=== PATIENT | male | born 1955 | race Caucasian/White ===

== ENCOUNTER 2016-10-11 19:15 | Inpatient (IN) ==
--- NOTE | 2016-10-11 19:58 | Emergency Department Note ---
Disposition Clinical Impression: Atrial fibrillation Qualifiers: Atrial fibrillation type: unspecified Qualified Code(s): I48.91 - Unspecified atrial fibrillation Disposition: Admitted As Inpatient Condition: Good [facility]Primary Care Provider[facility] - Forms: ED Satisfaction Letter Arrhythmia/Palpitations HPI - General Chief Complaint: ED Arrhythmia/Palpitations Stated Complaint: new onset afib Time Seen by Provider: 10/11/16 19:21 Source: patient, EMS Mode of arrival: EMS Limitations: no limitations Nursing Notes Reviewed: Yes Vital Signs Reviewed: Yes - History of Present Illness HPI Narrative: 61-year-old male history of esophageal cancer, hypertension, hyperlipidemia who presents to the ER via EMS from the [facility] due to new onset atrial fibrillation. Patient reports that this morning when he was up in his house he felt dizzy and lightheaded. He states that this happened a few times today which prompted him to go to the [facility] for evaluation. He denies any history of cardiac disease. He denies any chest pain, shortness of breath, palpitations today. They did an EKG at the [facility] finding atrial fibrillation and transferred him here for evaluation. Currently just reports feeling dizziness intermittently. No other complaints. Pt Subjective Complaint: atrial fibrillation Onset (ago): hour(s) Duration: intermittent Severity: moderate Context: occurred during rest Associated symptoms: Reports: near-syncope. Denies: chest pain, shortness of breath, syncope - Related Data Home Medications Medication Instructions Recorded Confirmed ALPRAZolam [Xanax 0.5 MG Tablet] 0.5 mg PO BID PRN 10/11/16 10/11/16 Atenolol [Tenormin] 12.5 mg PO DAILY 10/11/16 10/11/16 Furosemide [Lasix] 40 mg PO DAILY PRN 10/11/16 10/11/16 Heat & Moisture Exchanger 1 each .ROUTE AD 10/11/16 10/11/16 Thyroid,Pork [[place] Thyroid] 120 mg PO QAM 10/11/16 10/11/16 Trach Baseplate Adhesive 1 each .ROUTE AD 10/11/16 10/11/16 glipiZIDE [Glucotrol] 2.5 mg PO BIDWM 10/11/16 10/11/16 Allergies Allergy/AdvReac Type Severity Reaction Status Date / Time bacitracin Allergy Rash Verified 10/11/16 19:34 [From Neosporin ([id number])] lisinopril Allergy See Verified 10/11/16 19:34 Comments Neomycin Allergy Rash Verified 10/11/16 19:34 [From Neosporin ([id number])] polymyxin B Allergy Rash Verified 10/11/16 19:34 [From Neosporin ([id number])] simvastatin [From Zocor] Allergy See Verified 10/11/16 19:34 Comments All systems ED: reviewed and negative except as stated. Constitutional: Denies: fever Cardiovascular: Denies: chest pain, palpitations Respiratory: Denies: cough, dyspnea Gastrointestinal: Denies: abdominal pain, nausea, vomiting Neurological: Reports: other (Dizziness) Past Medical History - Past Medical History Attestation: Yes The following information was validated with the patient. Source: patient Medical history: Reports: diabetes, hyperlipidemia, hypertension, thyroid disease Psychiatric history: Reports: anxiety, panic disorder - Social History Smoking Status: Former smoker Smokeless Tobacco Status: No Alcohol use: Reports: none Drug use: Reports: none Physical Exam - General Limitations: no limitations General appearance: alert, in no apparent distress - Head Head exam: atraumatic, normocephalic, normal inspection - Eye Eye exam: Present: normal appearance, EOMI - ENT ENT exam: normal exam - Neck Neck exam: Present: normal inspection - Chest Chest inspection: Present: normal inspection, symmetric chest wall rise - Respiratory Respiratory exam: Present: normal lung sounds bilaterally - Cardiovascular Cardiovascular exam: Present: regular rate, irregular rhythm, normal heart sounds - Abdominal Exam Abdominal exam: Present: soft, Non-Tender. Absent: tenderness - Extremities Exam Extremities exam: Present: normal inspection, full ROM - Expanded Upper Extremity Exam Shoulder exam: Present: normal inspection, full ROM Arm exam: Present: normal inspection, full ROM Elbow exam: Present: normal inspection, full ROM Forearm/Wrist exam: Present: normal inspection, full ROM Hand exam: Present: normal inspection, full ROM - Expanded Lower Extremity Exam Hip/Pelvis exam: Present: normal inspection, full ROM Upper leg exam: Present: normal inspection, full ROM Knee exam: Present: normal inspection, full ROM Lower leg exam: Present: normal inspection, full ROM Ankle exam: Present: normal inspection, full ROM Foot/toe exam: Present: normal inspection, full ROM - Neurological Exam Neurological exam: Present: alert - Psychiatric Psychiatric exam: Present: normal affect, normal mood - Skin Skin exam: Present: warm, dry, intact, normal color Course Course Narrative: Patient seen and examined. Vital signs reviewed. We will obtain an EKG, chest x-ray as well as labs including troponin and TSH. Patient will require admission for observation for new onset atrial fibrillation. His rate is currently anywhere from 80-110 with a stable blood pressure. We will continue to monitor. - Reevaluation(s) Reevaluation #1: Discussed results of imaging and lab work with the patient. Vital Signs Temperature 98.2 F 10/11/16 19:21 Pulse Rate 107 10/11/16 19:21 Respiratory Rate 18 10/11/16 19:21 Blood Pressure 125/94 10/11/16 19:21 O2 Sat by Pulse Oximetry 98 10/11/16 19:21 Temperature 98.2 F 10/11/16 19:21 Pulse Rate 87 10/11/16 21:12 Respiratory Rate 18 10/11/16 21:12 Blood Pressure 120/85 10/11/16 21:12 O2 Sat by Pulse Oximetry 95 10/11/16 21:12 Oxygen Delivery Oxygen Delivery Room Air Arrhythmia/Palpitations - [facility] Narrative Medical decision making narrative: 61-year-old male presents to the ER after dizziness this morning found to have atrial fibrillation at the outside facility. His EKG redemonstrates atrial fibrillation here. His rate has been from 80-110 without intervention. Chest x -ray unremarkable. Troponin is negative. Patient is hemodynamically stable and will be admitted to the hospitalist service for further management. - Lab Data Lab results reviewed: Yes I reviewed the patient's lab results. Result diagrams: 10/11/16 20:06 10/11/16 20:06 Lab Results 10/11/16 10/11/16 10/11/16 Range/Units 20:06 20:06 20:06 WBC 9.0 (4.3-11.1) K/mcL RBC 5.59 H (4.19-5.50) M/mcL Hgb 16.7 (12.9-16.9) g/dL Hct 50.0 (37.5-50.1) % MCV 89.4 (83.0-100.0) fL MCH 29.9 (28.0-33.3) pg MCHC 33.4 (31.6-35.5) g/dL RDW 12.3 (11.5-14.5) % Plt Count 258 (140-400) K/mcL MPV 10.7 (9.4-12.4) fL Immature Gran % 0.2 (0-4) % Seg Neutrophils % 75.6 % Lymphocytes % 16.9 % Monocytes % 6.8 % Eosinophils % 0.2 % Basophils % 0.3 % Neutrophils # 6.8 (1.6-8.9) K/mcL Lymphocytes # 1.5 (0.6-4.6) K/mcL Monocytes # 0.6 (0.0-1.3) K/mcL Eosinophils # 0.0 (0.0-0.6) K/mcL Basophils # 0.0 (0.0-0.2) K/mcL Sodium 138 (136-145) mEq/L Potassium 4.1 (3.5-4.5) mEq/L Chloride 106 (98-109) mEq/L Carbon Dioxide 23 (19-29) mEq/L BUN 11 (8-26) mg/dL Creatinine 1.14 (0.72-1.25) mg/dL Est GFR ( Amer) > 60 (> 60) Est GFR (Non-Af Amer) > 60 (> 60) BUN/Creatinine Ratio 10 (6-26) Glucose 155 H (70-99) mg/dL Calculated Osmolality 289 (280-300) Calcium 9.2 (8.6-10.8) mg/dL Troponin I 0.00 (0-0.03) ng/mL TSH 0.244 L (0.350-4.840) mcIU/mL - Radiology Data Radiology results reviewed: Yes I reviewed the patient's radiology results. Chest X-Ray 10/11/16 19:28 IMPRESSION: No evidence of acute cardiopulmonary disease. D/ / Jimbo Silva MD / Jimbo Silva MD Interpreting Provider: Jimbo Silva MD - EKG Data EKG attestation: Yes I reviewed and interpreted this EKG. EKG results narrative: EKG demonstrates atrial fibrillation with a rate of 91 bpm. Normal axis. QRS duration [address] elevations or depressions. No acute ischemic findings. Bibaina - Bibiana Situation: Demographics, MOA Background: Presenting Complaint, Relevant PMH, Meds, & Allergies Assessment: Vital Signs, Course and respsone to treatment, Exam Concerns, Patient/Family Expectation, Pertinant Lab Results, Outstanding Labs Recommendation: Barrier(s) to disposition, Recommendation based on pending studies, treatments, or consults Bibiana Report Given to: Dr. Madhuri Mccarty Repor Time: 21:06 Attestation Statement - Attestation Attestation: I, Gustavo Huntley MD, personally evaluated this patient and discussed their management with the resident physician. I reviewed the resident's note and agree with the documented findings, medical decision making, and plan of care. 61-year-old male transferred from the [facility] urgent care for new onset atrial fibrillation. Patient denies any prior cardiac history. He presented because of complaints of feeling lightheaded intermittently since he got up this morning. No syncope. He states that he is really not dizzy just more lightheaded and feels like he is going to black out. The symptoms just seem to come and go. No headache. No chest pain or shortness of breath. He initially denies any palpitations however on further questioning admits that he did notice when he would lie down that it felt like maybe his heart was racing a little. He was seen at the [facility] and had an EKG which showed atrial fibrillation. He was transferred here for further evaluation and management. On examination patient is a well-developed morbidly obese male in no acute distress. He is alert and oriented 3. There is no cyanosis or diaphoresis. Chest is nontender to palpation. Breath sounds are clear and equal bilaterally. Heart irregularly irregular with a normal rate at time of my examination. Abdomen soft and nontender with normal bowel sounds. Trace pedal edema. Labs reviewed. Troponin normal. EKG shows atrial fibrillation. Chest x-ray negative. The hospitalist, Dr. Dhaliwal, was consulted and accepted admission of the patient.
[2016-10-11 20:16] LABS: Basophils % 0.3 %; Eosinophils % 0.2 %; Hemoglobin 16.7 g/dL (12.9-16.9); Immature Granulocytes % 0.2 % (0-4); Lymphocytes # 1.5 K/mcL (0.6-4.6); Lymphocytes % 16.9 %; Mean Corpuscular HGB Conc 33.4 g/dL (31.6-35.5); Mean Corpuscular Hemoglobin 29.9 pg (28.0-33.3); Mean Corpuscular Volume 89.4 fL (83.0-100.0); Mean Platelet Volume 10.7 fL (9.4-12.4); Monocytes # 0.6 K/mcL (0.0-1.3); Monocytes % 6.8 %; Neutrophils # 6.8 K/mcL (1.6-8.9); Platelet Count 258 K/mcL (140-400); Red Blood Count 5.59 M/mcL (4.19-5.50); Red Cell Distribution Width 12.3 % (11.5-14.5); Segmented Neutrophils % 75.6 %
[2016-10-11 20:25] LABS: BUN/Creatinine Ratio 10 (6-26); Blood Urea Nitrogen 11 mg/dL (8-26); Calcium 9.2 mg/dL (8.6-10.8); Carbon Dioxide 23 mEq/L (19-29); Chloride 106 mEq/L (98-109); Glucose 155 mg/dL (70-99); Osmolality,Calculated 289 (280-300); Potassium 4.1 mEq/L (3.5-4.5); Sodium 138 mEq/L (136-145); eGFR For African Americans > 60 (> 60); eGFR For Non-African Americans > 60 (> 60)
[2016-10-11 20:46] LABS: Thyroid Stimulating Hormone 0.244 mcIU/mL (0.350-4.840)
[2016-10-11] MEDS ORDERED: Naloxone 0.4 MG/ML INJ IVP PRN (21:28)
[2016-10-11] MEDS ORDERED: Acetaminophen 325 MG TABLET PO PRN (21:28)
--- NOTE | 2016-10-11 21:32 | Event Note ---
Date of Encounter: 10/11/16 Time of Encounter: 21:30 1. New-onset A. fib Increase atenolol up to 25 mg daily, start heparin drip, order echocardiogram, telemetry ECHO Consult cardiology 2. Diabetes type 2 not insulin-dependent, use insulin sliding scale 3. Hypertension, stable 4. History of esophageal cancer status post tracheostomy 5. History of DVT many years ago not on anticoagulation Admit to inpatient, expected to stay more than 2 midnights. Full code. Time spent on this admission 40 minutes. High risk due to comorbidities Omeprazole for GI prophylaxis and heparin drip for DVT prophylaxis. H&P to be written by TANK Crow
[2016-10-11] MEDS ORDERED: ALPRAZolam 0.5 MG TABLET PO PRN (21:33)
[2016-10-11] MEDS ORDERED: Furosemide 40 MG TABLET PO PRN (21:33)
[2016-10-11] MEDS ORDERED: *HR* Dextrose 50 % in Water (Syg) 50 ML SYRINGE IVP PRN (21:34)
[2016-10-11] MEDS ORDERED: D5% in Water 1,000 ML IVC PRN (21:34)
[2016-10-11] MEDS ORDERED: Dextrose Gel 15 GM PO PRN ×2 (21:34)
--- NOTE | 2016-10-11 21:37 | Internal Med History&Physical ---
<Karla Crow Jerome - Last Filed: 10/11/16 21:35> Date of Encounter: 10/11/16 Time of Encounter: 21:35 Assessment and Plan (1) Atrial fibrillation Current visit: Yes Status: Acute New onset. EKG with A. fib, rate controlled. Symptomatic with lightheadedness and dizziness prior to admission. Heparin drip started in the ED, echo, TSH, BNP, and troponin pending area check echo. Cardiology consult. Home beta denys increased to maintain rate control. Qualifiers: Atrial fibrillation type: paroxysmal Qualified Code(s): I48.0 - Paroxysmal atrial fibrillation (2) ALIA (acute kidney injury) Current visit: Yes Status: Acute Creat 1.4, baseline unknown. Patient denies history of CTD. Gentle IV fluids, monitor repeat CMP in a.m. (3) Essential hypertension Current visit: Yes Status: Acute Per history. BP mildly elevated in ED. Increase home BB. Monitor blood pressure titrate when necessary (4) Diabetes mellitus Current visit: Yes Status: Acute Per history. Control unknown. Holding home oral hypoglycemics. Add sliding scale insulin, monitor blood sugars and titrate when necessary. 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 Stable, no acute needs can follow up outpatient. (6) DVT prophylaxis Current visit: Yes Status: Acute Heparin drip Internal Medicine - H&P: HPI Chief complaint: a-fib Admitted From: Home Plans for Post Hospital Care: Home History of present illness: Mr. Stapleton is a 61 year old male with past medical history hypertension, diabetes , laryngeal cancer who presented to [facility] on 10/11/2016 after being found to be new onset A. fib at the [facility]. He was admitted for further workup and treatment, heparin drip and cardiac evaluation. Information obtained from chart review and patient report. Patient says he woke up today felt lightheaded and dizzy. He went to the [facility] was found to be in atrial fibrillation. No previous history. All my exam he says he feels better tired but back at baseline. No chest pain no lightheadedness no dizziness no palpitations. Past Med Surg Social Fam HX - Past Medical History Medical history: diabetes, hyperlipidemia, hypertension, thyroid disease Psychiatric history: anxiety, panic disorder - Past Surgical History Surgical History: knee replacement - Social History Smoking Status: Former smoker Smokeless Tobacco Status: No Alcohol use: none Drug use: none - Additional Family History Additional family history: Reviewed and noncontributory Internal Medicine - H&P: Meds ALPRAZolam [Xanax 0.5 MG Tablet] 0.5 mg PO BID PRN 10/11/16 [History] Atenolol [Tenormin] 12.5 mg PO DAILY 10/11/16 [History] Furosemide [Lasix] 40 mg PO DAILY PRN 10/11/16 [History] Heat & Moisture Exchanger 1 each .ROUTE AD 10/11/16 [History] Thyroid,Pork [[place] Thyroid] 120 mg PO QAM 10/11/16 [History] Trach Baseplate Adhesive 1 each .ROUTE AD 10/11/16 [History] glipiZIDE [Glucotrol] 2.5 mg PO BIDWM 10/11/16 [History] Allergies bacitracin [From Neosporin ([id number])] Allergy (Verified 10/11/16 19:34) Rash lisinopril Allergy (Verified 10/11/16 19:34) See Comments Neomycin [From Neosporin ([id number])] Allergy (Verified 10/11/16 19:34) Rash polymyxin B [From Neosporin ([id number])] Allergy (Verified 10/11/16 19:34) Rash simvastatin [From Zocor] Allergy (Verified 10/11/16 19:34) See Comments All Systems PM: A 10-system review of systems was performed and is negative for pertinent findings except as documented above in the HPI. - Constitutional Constitutional: no chills, no fever(s), no night sweats - EENT Eyes: no change in vision, no discharge, no pain, no photophobia Ears: no ear discharge, no ear pain, no tinnitus Nose, mouth and throat: no dysphagia, no nasal discharge, no neck pain, no sore throat - Cardiovascular Cardiovascular ROS IM: no chest pain, no diaphoresis, no dyspnea, no lightheadedness, no palpitations, no syncope - Respiratory Respiratory: no cough, no dyspnea, no wheezing, no excessive phlegm production - Gastrointestinal Gastrointestinal: no abdominal pain, no diarrhea, no hematemesis, no hematochezia, no melena, no nausea, no vomiting - Musculoskeletal Musculoskeletal ROS IM: no numbness, no tingling - Integumentary Integumentary IM: no rash, no unusual bruising - Neurological Neurological ROS: no confusion, no convulsions, no focal weakness, no numbness, no tingling, no tremor(s) - Hematologic/Lymphatic Hematologic/Lymphatic: no easy bruising - Constitutional Vitals: Temp Pulse Resp BP Pulse Ox 98.2 F 87 18 120/85 95 10/11/16 19:21 10/11/16 21:12 10/11/16 21:12 10/11/16 21:12 10/11/16 21:12 General appearance: Present: A&O X 3, morbidly obese - Head Head exam: Present: atraumatic, normocephalic - Eye Eye exam: Present: PERRL, conjuntiva pink, sclera anicteric Pupils: Present: PERRL - Neck Neck exam general surgery: Present: supple, trachea midline. Absent: lymphadenopathy Additional comments: Chronic trach - Respiratory Respiratory exam: Present: CTAB. Absent: accessory muscle use, rales, rhonchi, wheezes - Cardiovascular Cardiovascular exam: Present: irregular rhythm, +S1, +S2. Absent: diastolic murmur, gallop, rubs, systolic murmur Additional comments: Telemetry A. fib - GI/Abdominal GI/Abdominal exam: Present: normal bowel sounds, soft, no peritoneal signs. Absent: distended, tenderness - Extremities Exam Extremities exam: Present: warm, radial pulses palpable and symetrical. Absent : calf tenderness, cyanotic, pedal edema - Neurological Exam Neurological exam: Present: CN II-XII intact, oriented X3, no focal deficits. Absent: pronater drift, facial droop, speech deficit - Skin Skin exam: Present: dry, intact Internal Med - H&P Results - Labs CBC & Chem 7: 10/11/16 20:06 10/11/16 20:06 Labs: Short CBC 10/11/16 Range/Units 20:06 WBC 9.0 (4.3-11.1) K/mcL Hgb 16.7 (12.9-16.9) g/dL Hct 50.0 (37.5-50.1) % Plt Count 258 (140-400) K/mcL Neutrophils # 6.8 (1.6-8.9) K/mcL BMP 10/11/16 20:06 Sodium 138 Potassium 4.1 Chloride 106 Carbon Dioxide 23 BUN 11 Creatinine 1.14 Glucose 155 H Calcium 9.2 Cardiac Enzymes 10/11/16 Range/Units 20:06 Troponin I 0.00 (0-0.03) ng/mL - Impressions ITS Impressions Chest X-Ray 10/11/16 19:28 IMPRESSION: No evidence of acute cardiopulmonary disease. D/ / Jimbo Silva MD / Jimbo Silav MD Interpreting Provider: Jimbo Silva MD <Rian Rodriguez H - Last Filed: 10/12/16 02:41> Date of Encounter: 10/12/16 Internal Medicine - H&P: HPI History of present illness: Mr. Stapleton is a 61 year old male Past Med Surg Social Fam HX - Family History Mother Adopted: No Family Member Ethnicity: Non- Living Status: Age at : 52 Cause of : surgery Hx Family Cardiac Disorders: No Hx Family Respiratory Disorders: No Hx Family Cancer: No Hx Family GI Disorders: No Hx Family Genitourinary Disorders: No Hx Family Endocrine Disorder: No All Systems PM: A 10-system review of systems was performed and is negative for pertinent findings except as documented above in the HPI. - Constitutional Vitals: Temp Pulse Resp BP Pulse Ox 98.3 F 95 15 132/86 94 10/11/16 22:21 10/11/16 22:21 10/11/16 22:21 10/11/16 22:21 10/11/16 22:21 Internal Med - H&P Results - Labs CBC & Chem 7: 10/11/16 20:06 10/11/16 20:06 - Attending Attestation 1. New-onset A. fib Increase atenolol up to 25 mg daily, start heparin drip, order echocardiogram, telemetry ECHO Consult cardiology 2. Diabetes type 2 not insulin-dependent, use insulin sliding scale 3. Hypertension, stable 4. History of esophageal cancer status post tracheostomy 5. History of DVT many years ago not on anticoagulation Admit to inpatient, expected to stay more than 2 midnights. Full code. Time spent on this admission 40 minutes. High risk due to comorbidities Omeprazole for GI prophylaxis and heparin drip for DVT prophylaxis. I examined this patient and my medical decision-making was reviewed with the [employer]/PA/Advanced Practice Nurse/Resident Physician. I agree with the documented findings, disposition and treatment plan as described except to the extent set forth below.
[2016-10-11] MEDS ORDERED: Heparin 25,000 UNIT/500 ML D5W 25,000 UNIT/500 ML MLS IVC SCH (21:45)
[2016-10-11] MEDS ORDERED: 0.9 % Sodium Chloride 1,000 ML IVC SCH (21:45)
[2016-10-11 22:16] LABS: Hemoglobin A1C 6.4 %
[2016-10-12 03:27] LABS: Basophils # 0.1 K/mcL (0.0-0.2); Basophils % 0.6 %; Eosinophils # 0.1 K/mcL (0.0-0.6); Eosinophils % 1.3 %; Hematocrit 50.3 % (37.5-50.1); Immature Granulocytes % 0.3 % (0-4); Lymphocytes # 3.2 K/mcL (0.6-4.6); Lymphocytes % 32.6 %; Mean Corpuscular HGB Conc 33.8 g/dL (31.6-35.5); Mean Corpuscular Hemoglobin 30.4 pg (28.0-33.3); Mean Platelet Volume 10.9 fL (9.4-12.4); Monocytes # 0.9 K/mcL (0.0-1.3); Monocytes % 9.5 %; Neutrophils # 5.5 K/mcL (1.6-8.9); Platelet Count 267 K/mcL (140-400); Red Blood Count 5.59 M/mcL (4.19-5.50); Red Cell Distribution Width 12.5 % (11.5-14.5); Segmented Neutrophils % 55.7 %
[2016-10-12 03:45] LABS: Alanine Aminotransferase 25 Units/L (0-55); Albumin 3.7 g/dL (3.5-5.0); Albumin/Globulin Ratio 1.1 (1.1-2.2); Alkaline Phosphatase 77 Units/L (38-126); Aspartate Amino Transferase 20 Units/L (5-34); BUN/Creatinine Ratio 10 (6-26); Bilirubin,Total 0.8 mg/dL (0.2-1.2); Blood Urea Nitrogen 12 mg/dL (8-26); Calcium 9.3 mg/dL (8.6-10.8); Carbon Dioxide 25 mEq/L (19-29); Chloride 106 mEq/L (98-109); Chol/HDL Ratio 6.1 (0-4.9); Cholesterol 250 mg/dL (< 200); Globulin 3.5 g/dL (2.4-3.5); Glucose 119 mg/dL (70-99); HDL Cholesterol 41 mg/dL (40-59); LDL Cholesterol,Calculated 165 mg/dL (0-99); Osmolality,Calculated 291 (280-300); Sodium 140 mEq/L (136-145); Total Protein 7.2 g/dL (6.0-8.3); Triglycerides 218 mg/dL (< 150); eGFR For African Americans > 60 (> 60); eGFR For Non-African Americans > 60 (> 60)
[2016-10-12] MEDS ORDERED: *HR* Heparin 5,000 UNIT/ML VIAL IVP PRN ×2 (05:49)
[2016-10-12] MEDS ORDERED: Perflutren Lipid Microsphere 1.3 ML in 0.9 % Sodium Chloride 8.7 ML IVP ONE (08:07)
[2016-10-12] MEDS: Insulin LISPRO 300 UNITS/3 ML VIAL SQ SCH ×3 (08:29→12:15)
[2016-10-12 08:30] LABS: Triiodothyronine (T3) Free 2.29 pg/mL (1.71-3.71)
[2016-10-12] MEDS ORDERED: Thyroid (Amour) 30 MG TABLET PO SCH (09:00)
[2016-10-12] MEDS ORDERED: Sennosides/Docusate Sodium TABLET PO SCH (11:00)
[2016-10-12 11:48] VITALS: BP 114/78
--- NOTE | 2016-10-12 12:25 | Cardiology Consult Note ---
Date of Encounter: 10/12/16 Time of Encounter: 12:00 Assessment and Plan (1) Atrial fibrillation Current Visit: Yes Status: Acute Newly diagnosed atrial fibrillation; patient reports similar episode 1 month ago. Rate controlled with increased dose of oral betablocker. Avg HR=87 Electrolytes normal. TSH low, at 0.244--will defer further mgmt to primary service. Recommend rate control strategy and anticoagulation for 1 month; follow-up in the outpatient setting to discuss rhythm control. Echocardiogram pending. CHA2Ds Vasc= 2 (HTN, DMII); recommend long-term anticoagulation. Discussed NOAC vs. Coumadin, he prefers NOAC. Discussed with Dr. Huizar, will start Eliquis 5 mg BID. Social work consulted for cost assistance. No further recommendations from Cardiology standpoint, will sign-off and coordinate appt in the outpatient setting. Qualifiers: Atrial fibrillation type: persistent Qualified Code(s): I48.1 - Persistent atrial fibrillation Discussion w patient/family: The assessment and plan as outlined above was discussed with the patient and/or family members who expressed understanding and agreement. All questions were answered. Thank you for involving us in the care of your patient. Please call with any questions. The patient will be discussed and reviewed with Dr. Huizar; changes to be made accordingly. History of Present Illness Consult date: 10/12/16 Requesting physician: Karla Crow Consult reason: afib Chief complaint: Dizziness History of present illness: Mr. Stapleton is a 61 year old male with PMH significant for esophageal CA s/p tracheostomy (remission x16 years), HTN, hypothyroidism, DMII, panic attacks, and HLD who presented from the [facility] due to suspected new onset atrial fibrillation. He reports he woke up yesterday morning feeling off balance, he then went back to bed to lay down which improved symptoms. He got up again and symptoms returned and went to the CT. Reports similar episode close to a month ago. [facility], rate low 100's. He denies any prior cardiac history including arrhythmia or CAD. Past Med Surg Social Fam HX - Past Medical History Attestation: Yes The following information was validated with the patient. Source: patient Medical history: diabetes, hyperlipidemia, hypertension, thyroid disease Psychiatric history: anxiety, panic disorder - Past Surgical History Surgical History: cancer surgery, knee replacement - Social History Smoking Status: Former smoker Smokeless Tobacco Status: No Alcohol use: rarely Drug use: none - Family History Mother Adopted: No Family Member Ethnicity: Non- Living Status: Age at : 52 Cause of : surgery Hx Family Cardiac Disorders: No Hx Family Respiratory Disorders: No Hx Family Cancer: No Hx Family GI Disorders: No Hx Family Genitourinary Disorders: No Hx Family Endocrine Disorder: No Medications and Allergies ALPRAZolam [Xanax 0.5 MG Tablet] 0.5 mg PO BID PRN 10/11/16 [History] Atenolol [Tenormin] 12.5 mg PO DAILY 10/11/16 [History] Furosemide [Lasix] 40 mg PO DAILY PRN 10/11/16 [History] Heat & Moisture Exchanger 1 each .ROUTE AD 10/11/16 [History] Thyroid,Pork [[place] Thyroid] 120 mg PO QAM 10/11/16 [History] Trach Baseplate Adhesive 1 each .ROUTE AD 10/11/16 [History] glipiZIDE [Glucotrol] 2.5 mg PO BIDWM 10/11/16 [History] Allergies bacitracin [From Neosporin ([id number])] Allergy (Verified 10/11/16 19:34) Rash lisinopril Allergy (Verified 10/11/16 19:34) See Comments Neomycin [From Neosporin ([id number])] Allergy (Verified 10/11/16 19:34) Rash polymyxin B [From Neosporin ([id number])] Allergy (Verified 10/11/16 19:34) Rash simvastatin [From Zocor] Allergy (Verified 10/11/16 19:34) See Comments All Systems Review: A 10-system review of systems was performed and is negative for pertinent findings except as documented above in the HPI. - Cardiovascular Cardiovascular: as per HPI Physical Examination Vital Signs, Last 4 Hours Temp Pulse Resp BP Pulse Ox 10/12/16 11:47 97.6 F 61 20 114/78 93 10/12/16 09:18 96 General: Conversant, Other HEENT: Atraumatic, Normocephaly Neck: Other (stoma) Cardiac: Other (irregularly irregular) Lungs: Normal Breath Sounds Neuro: Alert and responsive Abdomen: Soft Skin: No rashes noted on visualized skin Musculoskeletal: No Chest Wall Tenderness Extremities: No Edema, Normal Pulses Results 10/12/16 03:09 10/12/16 03:09 Lab Results 10/12/16 10/12/16 10/12/16 03:09 03:09 03:09 WBC 9.9 Hgb 17.0 H Hct 50.3 H Plt Count 267 APTT Sodium 140 Potassium 4.0 Chloride 106 Carbon Dioxide 25 BUN 12 Creatinine 1.20 Glucose 119 H Calcium 9.3 Total Bilirubin 0.8 AST 20 ALT 25 Alkaline Phosphatase 77 Troponin I 0.01 B-Natriuretic Peptide 10/12/16 10/12/16 10/12/16 03:09 05:48 09:20 WBC Hgb Hct Plt Count APTT 85.2 H Sodium Potassium Chloride Carbon Dioxide BUN Creatinine Glucose Calcium Total Bilirubin AST ALT Alkaline Phosphatase Troponin I 0.00 B-Natriuretic Peptide 245 H - Imaging and Cardiology Echo: pending Other Results: 12 hour tele: avg HR=87 afib. - EKG Interpretation EKG results cardiology: personally reviewed Consult Discharge Plan - Plan [facility]errals: [facility] [Primary Care Provider] -
[2016-10-12] MEDS ORDERED: APIXABAN 5 MG TABLET PO SCH (13:00)
--- NOTE | 2016-10-12 13:12 | Discharge Summary ---
Date of Encounter: 10/12/16 Time of Encounter: 11:00 - Discharge Diagnosis (1) Atrial fibrillation Priority: Primary Status: Acute Qualifiers: Atrial fibrillation type: persistent Qualified Code(s): I48.1 - Persistent atrial fibrillation (2) Essential hypertension Priority: Secondary Status: Acute (3) Diabetes mellitus Priority: Secondary Status: Acute Qualifiers: Diabetes mellitus type: type 2 Diabetes mellitus complication status: with unspecified complications Diabetes mellitus technician terminal and repeater insulin use: without technician terminal and repeater use Qualified Code(s): E11.8 - Type 2 diabetes mellitus with unspecified complications (4) Laryngeal cancer Priority: Secondary Status: Acute (5) ALIA (acute kidney injury) Priority: Secondary Status: Ruled-out - Discharge Medications Prescriptions: Apixaban [Eliquis] 5 mg PO Q12H #60 tablet Atenolol [Tenormin] 25 mg PO DAILY #30 tablet Home Medications: ALPRAZolam [Xanax 0.5 MG Tablet] 0.5 mg PO BID PRN 10/11/16 [History] Furosemide [Lasix] 40 mg PO DAILY PRN 10/11/16 [History] Heat & Moisture Exchanger 1 each .ROUTE AD 10/11/16 [History] Thyroid,Pork [[place] Thyroid] 120 mg PO QAM 10/11/16 [History] Trach Baseplate Adhesive 1 each .ROUTE AD 10/11/16 [History] glipiZIDE [Glucotrol] 2.5 mg PO BIDWM 10/11/16 [History] Apixaban [Eliquis] 5 mg PO Q12H #60 tablet 10/12/16 [Rx] Atenolol [Tenormin] 25 mg PO DAILY #30 tablet 10/12/16 [Rx] Allergies/Adverse Reactions: Allergies bacitracin [From Neosporin ([id number])] Allergy (Verified 10/11/16 19:34) Rash lisinopril Allergy (Verified 10/11/16 19:34) See Comments Neomycin [From Neosporin ([id number]-qxy-[id number])] Allergy (Verified 10/11/16 19:34) Rash polymyxin B [From Neosporin (vlk-owk-liglg)] Allergy (Verified 10/11/16 19:34) Rash simvastatin [From Zocor] Allergy (Verified 10/11/16 19:34) See Comments Date of admission: 10/12/16 00:30 [facility]: [facility] Consults: 10/12/16 12:25 Consult to Rn Post Partum [CONS] Routine Reason for Consult: discharge planning--started on Eliquis for AC. Discharging clinician: Armand Eller Anticipated date of discharge: 10/12/16 - Patient Status Disposition: Home, Self-Care Condition: Good Functional capacity at discharge: independent ambulation Overall status at discharge: patient is progressing back to baseline - Discharge Instructions Instructions: Atrial Fibrillation (DC) Follow Up With: [facility] [Primary Care Provider] - (In one week) Additional Instructions: With cardiology in 1-2 weeks - Diet and Activity Activity: resume usual activities as tolerated Diet: advance to your usual diet, diabetic diet, low fat, low cholesterol, low salt diet Hospital course: Mr. Stapleton is a 61 year old male patient with a history of essential hypertension , diabetes, hypothyroidism, hyperlipidemia, prior laryngeal cancer status post tracheostomy who was found to have new onset atrial fibrillation at the [facility]. He was transferred here for further evaluation. By the time he came here, his heart rate was well controlled. The patient's atenolol dosage was increased to 25 mg daily. His heart rate has remained in A. fib but better controlled. Cardiology evaluated the patient and recommended starting the patient on Eliquis in addition to this. Patient had a 2-D echocardiogram which showed EF of 60% with indeterminate diastolic function. Cardiology recommends follow-up in the clinic in 2 weeks for further management. At this time the patient is clinically stable for discharge. His thyroid hormone showed a slightly low TSH but normal free T4 and free T3 levels. Patient takes [place] Thyroid for his hypothyroidism. - Time Spent with Patient Total time spent providing and/or coordinating discharge services: Less than 30 minutes (25 min) - Constitutional Vitals: Temp Pulse Resp BP Pulse Ox 97.6 F 61 20 114/78 93 10/12/16 11:47 10/12/16 11:47 10/12/16 11:47 10/12/16 11:47 10/12/16 11:47 General appearance: Present: cooperative, A&O X 3, morbidly obese, no acute distress, answers questions appropriately - Neck Neck exam general surgery: Present: supple, trachea midline. Absent: lymphadenopathy - Respiratory Respiratory exam: Present: CTAB. Absent: accessory muscle use, rales, rhonchi, wheezes - Cardiovascular Cardiovascular exam: Present: irregular rhythm, +S1, +S2. Absent: diastolic murmur, gallop, rubs, systolic murmur - GI/Abdominal GI/Abdominal exam: Present: normal bowel sounds, soft, no peritoneal signs. Absent: distended, tenderness - Extremities Exam Extremities exam: Present: warm, radial pulses palpable and symetrical. Absent : calf tenderness, cyanotic, pedal edema - Neurological Exam Neurological exam: Present: alert, oriented X3, no focal deficits. Absent: facial droop, speech deficit - Attending Attestation This document has been at least partially created by [employer] recognition technology by Dr. Eller. Errors in grammar, wording or other phrases may exist. If errors are found after the documentation is signed, they will be addressed individually in the addendum section of this document when appropriate.
[2016-10-12] MEDS ORDERED: Insulin LISPRO 300 UNITS/3 ML VIAL SQ SCH (21:00)
--- NOTE | 2016-10-14 08:02 | Electrocardiograph Report ---
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
== END 2016-10-12 14:50 | disposition home or self-care (01) | DRG 309 ==
LOC: EMEROO 19:15 → 2ANU 19:15
PROVIDERS: ADMIT Internal Medicine; ATTEND Internal Medicine

== ENCOUNTER 2017-04-08 09:47 | Inpatient (IN) ==
[2017-04-08] MEDS ORDERED: ALPRAZolam 0.5 MG TABLET PO PRN (14:00)
[2017-04-08] MEDS ORDERED: Naloxone 0.4 MG/ML INJ IVP PRN (14:00)
[2017-04-08] MEDS ORDERED: Furosemide 40 MG TABLET PO PRN (14:00)
--- NOTE | 2017-04-08 14:07 | Electrophysiology H & P ---
<Shawn Figueroa - Last Filed: 04/08/17 14:26> Date of Encounter: 04/08/17 Time of Encounter: 14:00 Assessment and Plan (1) Atrial fibrillation Current Visit: No Status: Acute Per EP: PAF. Had DCCV with conversion to SR. Now with recurrent afib. ECG shows afib 90' s, QRS = 89ms. Echo and ST ok. Will check labs. On BB. Will start Rythmol 150mg PO q8h-- plan for possible DCCV am. Has not missed any doses of Xarelto in past 30 days, will not EDITH. Discussed with Dr. Lazaro Milton. Qualifiers: Atrial fibrillation type: paroxysmal Qualified Code(s): I48.0 - Paroxysmal atrial fibrillation (2) Laryngeal cancer Current Visit: No Status: Chronic Per Cardiology: Hx of Trahc, on RA. Uses TC with humidity PRN, Stable. The assessment and plan as outlined above was discussed with the patient and/or family members who expressed understanding and agreement. All questions were answered. History of Present Illness Chief complaint: Afib HPI: Mr. Stapleton is a 62 year old male with a relevant past medical history of hypertension, diabetes mellitus type 2, hypothyroidism, hyperlipidemia, history of laryngeal cancer with tracheostomy for the past 18 years on room air. Patient reports he utilizes trach collar with humidity during the winter months. Also with apparent new developed of atrial fibrillation. Had previous cardioversion with conversion to sinus rhythm, however relapsed into A. fib. Seen by Dr. Lazaro Milton February 2017 and now being directly admitted for initiation of Rythmol. Patient denies any chest pain, short of breath, palpitations. Denies any acute changes since last visit. Reports has taken medications today and has not missed his Xarelto medication in the past 30 days. He denies any active bleeding or blood loss. Past Med Surg Social Fam HX - Past Medical History Attestation: Yes The following information was validated with the patient. Source: patient, old records reviewed Medical history: atrial fibrillation, diabetes, hyperlipidemia, hypertension, thyroid disease Psychiatric history: anxiety, panic disorder - Past Surgical History Surgical History: cancer surgery - Social History Smoking Status: Former smoker Smokeless Tobacco Status: No Alcohol use: rarely Drug use: none - Family History Mother Adopted: No Family Member Ethnicity: Non- Living Status: Hx Family Cardiac Disorders: No Hx Family Respiratory Disorders: No Hx Family Cancer: No Hx Family GI Disorders: No Hx Family Endocrine Disorder: No Medications and Allergies ALPRAZolam [Xanax 0.5 MG Tablet] 0.5 mg PO BID PRN 10/11/16 [History] Furosemide [Lasix] 40 mg PO DAILY PRN 10/11/16 [History] Thyroid,Pork [[place] Thyroid] 120 mg PO QAM 10/11/16 [History] Atenolol [Tenormin] 25 mg PO DAILY #30 tablet 10/12/16 [Rx] Docusate Sodium [Stool Softener] 50 mg PO DAILY 01/23/17 [History] Melatonin/Pyridoxine HCl (B6) [Melatonin 3 mg Tablet] 1 each PO HS 01/23/17 [ History] Rivaroxaban [Xarelto] 20 mg PO DAILY 01/23/17 [History] metFORMIN [Glucophage] 1,000 mg PO BID 01/23/17 [History] 3 Allergy/AdvReac Type Severity Reaction Status Date / Time bacitracin Allergy Rash Verified 04/08/17 12:19 [From Neosporin ([id number])] lisinopril Allergy See Verified 04/08/17 12:19 Comments Neomycin Allergy Rash Verified 04/08/17 12:19 [From Neosporin ([id number]-xub-[id number])] polymyxin B Allergy Rash Verified 04/08/17 12:19 [From Neosporin ([id number]-uxh-gaqey)] simvastatin [From Zocor] Allergy See Verified 04/08/17 12:19 Comments All Systems Review: A 10-system review of systems was performed and is negative for pertinent findings except as documented above in the HPI. - Cardiovascular Cardiovascular: as per HPI, palpitations Physical Examination none available, pending, HR 90s on ECG General: Conversant, No Apparent Distress HEENT: Atraumatic, Normocephaly, Mucus Membranes Moist Neck: No JVD, Normal carotid pulses Cardiac: Reg Rate and Rhythm, Normal S1 and S2, No Murmur Lungs: Normal Breath Sounds, No Wheeze, Rales, Rhonchi, Other (Tracheostomy to RA-- wears Trach collar with humidty as needed) Neuro: Alert and responsive, No focal deficits noted Abdomen: Soft, Non-Tender Skin: No rashes noted on visualized skin Musculoskeletal: No Chest Wall Tenderness Extremities: No Clubbing, No Cyanosis, No Edema, Normal Pulses Results Labs pending STRESS TEST 03/2017: Impression: Atrial fibrillation with RVR throughout the study. Pharmacologic stress ECG is negative for ischemia at level of heart rate achieved. Gated EF = 50%. Small sized, mild to moderate intensity, primarily fixed inferior perfusion defect. Wall motion appears normal. These findings are suggestive of artifact. Perfusion imaging was negative for ischemia. Overall, this was a fair quality study. ECHO 10/2016: Impressions: Technically sub-optimal due to poor echocardiographic windows. Echo contrast was used. Normal LV systolic function, LVEF 60%. Indeterminate diastolic function due to atrial fibrillation. Normal right ventricular size and function. No significant valvular dysfunction. Unable to estimate RVSP due to lack of TR jet. Left Ventricular Wall Motion: Rest Echo Findings All wall segments showed normal motion. - Imaging and Cardiology Stress Test: report reviewed Echo: report reviewed - EKG Interpretation EKG results cardiology: personally reviewed, other (afib in the 90's) - VTE Reasons for not Prescribing Prophylaxis: Not indicated-Anticoagulated or INR therapeutic <Lazaro Milton - Last Filed: 04/09/17 17:27> Date of Encounter: 04/09/17 - Attending Attestation I have personally performed a face to face evaluation on this patient. I have reviewed and agree with the care plan. History and Exam by me shows: History of Present Illness HPI: Mr. Stapleton is a 62 year old male All Systems Review: A 10-system review of systems was performed and is negative for pertinent findings except as documented above in the HPI. Results 04/09/17 04:45 04/09/17 04:45 Lab Results 04/09/17 04/09/17 04:45 04:45 WBC 8.7 Hgb 16.2 Hct 46.9 Plt Count 226 Sodium 137 Potassium 4.5 Chloride 103 Carbon Dioxide 23 BUN 12 Creatinine 1.20 Glucose 120 H Calcium 9.3 Magnesium 2.1 TSH 1.738
[2017-04-08] MEDS ORDERED: Dextrose Gel 15 GM PO PRN ×2 (14:26)
[2017-04-08] MEDS ORDERED: D5% in Water 1,000 ML IVC PRN (14:26)
[2017-04-08] MEDS ORDERED: *HR* Dextrose 50 % in Water (Syg) 50 ML SYRINGE IVP PRN (14:26)
[2017-04-08] MEDS: Insulin LISPRO 300 UNITS/3 ML VIAL SQ SCH ×2 (17:27→21:37)
[2017-04-08] MEDS ORDERED: (Melatonin/Pyridoxine Hcl (B6) [Melatonin 3 Mg Tablet PO SCH (21:00)
[2017-04-08] MEDS: Melatonin 3 MG TABLET PO SCH (21:25)
[2017-04-08] MEDS: *HR* Metformin 500 MG TABLET PO SCH (21:25)
[2017-04-09 05:13] LABS: Hematocrit 46.9 % (37.5-50.1); Hemoglobin 16.2 g/dL (12.9-16.9); Mean Corpuscular HGB Conc 34.5 g/dL (31.6-35.5); Mean Corpuscular Hemoglobin 30.9 pg (28.0-33.3); Mean Corpuscular Volume 89.3 fL (83.0-100.0); Mean Platelet Volume 11.3 fL (9.4-12.4); Platelet Count 226 K/mcL (140-400); Red Blood Count 5.25 M/mcL (4.19-5.50); Red Cell Distribution Width 12.9 % (11.5-14.5)
[2017-04-09 05:24] LABS: BUN/Creatinine Ratio 10 (6-26); Blood Urea Nitrogen 12 mg/dL (8-26); Calcium 9.3 mg/dL (8.6-10.8); Carbon Dioxide 23 mEq/L (19-29); Chloride 103 mEq/L (98-109); Glucose 120 mg/dL (70-99); Magnesium 2.1 mg/dL (1.6-2.6); Osmolality,Calculated 285 (280-300); Potassium 4.5 mEq/L (3.5-4.5); Sodium 137 mEq/L (136-145); eGFR For African Americans > 60 (> 60); eGFR For Non-African Americans > 60 (> 60)
[2017-04-09 05:46] LABS: Thyroid Stimulating Hormone 1.738 mcIU/mL (0.350-4.840)
[2017-04-09] MEDS: Thyroid (Amour) 30 MG TABLET PO SCH (06:31)
[2017-04-09] MEDS: Insulin LISPRO 300 UNITS/3 ML VIAL SQ SCH ×4 (08:03→21:13)
[2017-04-09] MEDS: *HR* Metformin 500 MG TABLET PO SCH ×2 (08:05→16:59)
[2017-04-09] MEDS: *HR* Rivaroxaban 10 MG TABLET PO SCH (08:05)
[2017-04-09] MEDS ORDERED: DOCUSATE SODIUM 50 MG PO SCH (09:00)
--- NOTE | 2017-04-09 10:35 | Cardiology Progress Note ---
Date of Encounter: 04/09/17 Time of Encounter: 08:30 Assessment and Plan (1) Atrial fibrillation Current Visit: No Status: Chronic Per EP: -PAF. Had DCCV with conversion to SR. Now with recurrent afib. -ECG 04/08/17 shows afib 90's, QRS = 89ms. -ECG 04/09/17 with a.fib HR 91, QRS 96ms. -Echo and ST ok. Will check labs. On BB. -On Rythmol 150mg PO q8h s/p 3 total doses. -On xarelto for anticoagulation, has not missed any doses in the past 30 days, will not require EDITH. -Colntinue rhythmol. Continue telemetry. -NPO after midnight. -plan for possible DCCV am. Qualifiers: Atrial fibrillation type: paroxysmal Qualified Code(s): I48.0 - Paroxysmal atrial fibrillation (2) Laryngeal cancer Current Visit: No Status: Chronic Per Ep: Hx of Trach, on RA. Uses TC with humidity PRN, Stable. Discussion w patient/family: The assessment and plan as outlined above was discussed with the patient who expressed understanding and agreement. All questions were answered. Thank you for involving us in the care of your patient. Please call with any questions. Discussed and reviewed with Dr.John Milton. Subjective Principal diagnosis: atrial fibrillation Interval history: Patient states he feels well this morning. Denies complaints. Objective Vital Signs, Last 4 Hours Temp Pulse Resp BP Pulse Ox 04/09/17 07:42 97.9 F 93 17 124/86 96 General: Conversant, No Apparent Distress HEENT: Atraumatic, Normocephaly, Mucus Membranes Moist, Other (Stoma noted. ) Neck: No JVD, Normal carotid pulses Cardiac: Normal S1 and S2, No Murmur, Other (Irregularly irregular) Lungs: Normal Breath Sounds, No Wheeze, Rales, Rhonchi Neuro: Alert and responsive, No focal deficits noted Abdomen: Soft, Non-Tender Skin: No rashes noted on visualized skin Musculoskeletal: No Chest Wall Tenderness Extremities: No Clubbing, No Cyanosis, No Edema, Normal Pulses Results 04/09/17 04:45 04/09/17 04:45 Lab Results Active Medications Alprazolam (Xanax) 0.5 mg PO BID PRN; Protocol PRN Reason: Anxiety Stop: 10/08/17 14:01 Atenolol (Tenormin) 25 mg PO DAILY RAFI Stop: 10/09/17 09:01 Last Admin: 04/09/17 08:05 Dose: 25 mg Dextrose/Water (Dextrose 50% (Syg)) 25 ml IVP AD PRN PRN Reason: Hypoglycemia Stop: 10/08/17 14:27 Docusate Sodium (Colace) 100 mg PO DAILY RAFI PRN Reason: Protocol Stop: 10/09/17 09:01 Last Admin: 04/09/17 08:05 Dose: 100 mg Furosemide (Lasix) 40 mg PO DAILY PRN PRN Reason: Edema Stop: 10/08/17 14:01 Glucagon (Glucagen) 1 mg IM ONCE PRN PRN Reason: Hypoglycemia Stop: 10/08/17 14:27 Glucose (Gluctose) 15 gm PO ONCE PRN PRN Reason: Hypoglycemia Stop: 10/08/17 14:27 Glucose (Gluctose) 30 gm PO ONCE PRN PRN Reason: Hypoglycemia Stop: 10/08/17 14:27 Dextrose (Dextrose 5%) 1,000 mls @ 100 mls/hr IVC .Q10H PRN PRN Reason: HYPOGLYCEMIA Stop: 10/08/17 14:27 Insulin Human Lispro (Humalog) 0 units SQ HS RAFI PRN Reason: Protocol Stop: 10/08/17 21:01 Last Admin: 04/08/17 21:37 Dose: Not Given Insulin Human Lispro (Humalog) 0 units SQ TIDAC RAFI PRN Reason: Protocol Stop: 10/08/17 16:31 Last Admin: 04/09/17 08:03 Dose: Not Given Melatonin (Melatonin) 3 mg PO HS [facility] Stop: 10/08/17 21:01 Last Admin: 04/08/17 21:25 Dose: Not Given Metformin HCl (Glucophage) 1,000 mg PO BIDWM RAFI PRN Reason: Protocol Stop: 10/08/17 21:01 Last Admin: 04/09/17 08:05 Dose: 1,000 mg Naloxone HCl (Narcan) 0.4 mg IVP Q2MIN PRN PRN Reason: Opioid Reversal Stop: 10/08/17 14:01 Propafenone HCl (Rhythmol) 150 mg PO Q8H [facility] Stop: 10/08/17 23:01 Last Admin: 04/09/17 08:05 Dose: 150 mg Rivaroxaban (Xarelto) 20 mg PO DAILY RAFI Stop: 10/09/17 09:01 Last Admin: 04/09/17 08:05 Dose: 20 mg Thyroid ([place] Thyroid) 120 mg PO 0630 [facility] Stop: 10/09/17 06:31 Last Admin: 04/09/17 06:31 Dose: 120 mg Laboratory Tests 04/09/17 04/09/17 04:45 04:45 Hgb 16.2 Potassium 4.5 Creatinine 1.20 Magnesium 2.1 TSH 1.738 - Imaging and Cardiology Stress Test: report reviewed Echo: report reviewed - EKG Interpretation EKG results cardiology: personally reviewed (ECG today with atrial fibrillation , HR 91. QRS 96ms.), other (Telemetry reviewed with average HR previous 12 hours noted to be 95, atrial fibrillation. PVCs noted.) - VTE Reasons for not Prescribing Prophylaxis: Not indicated-Anticoagulated or INR therapeutic Consult Discharge Plan - Plan [facility]errals: [facility] [Primary Care Provider] - 04/15/17 2:30 pm (Please follow up as schedule...)
--- NOTE | 2017-04-09 19:15 | Electrocardiograph Report ---
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
[2017-04-09] MEDS: Melatonin 3 MG TABLET PO SCH (21:13)
[2017-04-10] MEDS: Thyroid (Amour) 30 MG TABLET PO SCH (06:02)
[2017-04-10] MEDS: Insulin LISPRO 300 UNITS/3 ML VIAL SQ SCH ×2 (07:56→11:56)
[2017-04-10] MEDS: *HR* Rivaroxaban 10 MG TABLET PO SCH (08:20)
[2017-04-10] MEDS: *HR* Metformin 500 MG TABLET PO SCH (08:20)
[2017-04-10 09:47] LABS: INR 1.8; Prothrombin Time 19.4 Seconds (9.4-12.1)
[2017-04-10] MEDS ORDERED: Naloxone 0.4 MG/ML INJ ONE (09:50)
[2017-04-10] MEDS ORDERED: *HR* Midazolam HCl 5 MG/5 ML VIAL IVP ONE ×2 (09:50→10:35)
[2017-04-10] MEDS ORDERED: *HR* FentaNYL (PF) 250 MCG/5 ML VIAL ONE (09:50)
[2017-04-10] MEDS ORDERED: 0.9 % Sodium Chloride 1,000 ML ONE (09:51)
--- NOTE | 2017-04-10 10:17 | Pre-Sedation Evaluation ---
Pre-sedation evaluation - Pre-sedation checklist Procedure: CARDIOVERSION Recent Vitals: Last Vital Signs Temp 97.5 F L 04/10/17 06:50 Pulse 89 04/10/17 06:50 Resp 18 04/10/17 06:50 BP 130/92 04/10/17 06:50 Pulse Ox 97 04/10/17 06:50 H&P (including ROS) documented in medical record: Yes Previous reaction to sedatives/anesthetics: No Dietary Status: NPO after Midnight Airway Assessment: Patient can open mouth completely, TMJ function normal, Micrognathia (under-bite, receding chin) absent Dentition: No loose teeth or bridges Possible difficult airway: No ASA Classification *see protocol: CLASS II-Mild systemic disease Plan of Care: Pt appropriate candidate for procedure/moderate/conscious sedation , Risks/benefits of procedure/sedation discussed w/ patient/family
[2017-04-10 11:36] VITALS: BP 120/83
--- NOTE | 2017-04-10 12:37 | Discharge Summary ---
Date of Encounter: 04/10/17 Time of Encounter: 12:35 - Discharge Diagnosis (1) Atrial fibrillation Priority: Primary Status: Chronic Comments: Known PAF. Admitted for rhythmol initiation. Qualifiers: Atrial fibrillation type: paroxysmal Qualified Code(s): I48.0 - Paroxysmal atrial fibrillation (2) Laryngeal cancer Priority: Secondary Status: Chronic Comments: History of laryngeal cancer. Has stoma. - Discharge Medications Prescriptions: Propafenone [Rhythmol] 150 mg PO Q8H #90 tablet Home Medications: ALPRAZolam [Xanax 0.5 MG Tablet] 0.5 mg PO BID PRN 10/11/16 [History] Furosemide [Lasix] 40 mg PO DAILY PRN 10/11/16 [History] Thyroid,Pork [[place] Thyroid] 120 mg PO QAM 10/11/16 [History] Atenolol [Tenormin] 25 mg PO DAILY #30 tablet 10/12/16 [Rx] Docusate Sodium [Stool Softener] 50 mg PO DAILY 01/23/17 [History] Melatonin/Pyridoxine HCl (B6) [Melatonin 3 mg Tablet] 1 each PO HS 01/23/17 [ History] Rivaroxaban [Xarelto] 20 mg PO DAILY 01/23/17 [History] metFORMIN [Glucophage] 1,000 mg PO BID 01/23/17 [History] Propafenone [Rhythmol] 150 mg PO Q8H #90 tablet 04/10/17 [Rx] Allergies/Adverse Reactions: 3 Allergy/AdvReac Type Severity Reaction Status Date / Time bacitracin Allergy Rash Verified 04/08/17 12:19 [From Neosporin ([id number])] lisinopril Allergy See Verified 04/08/17 12:19 Comments Neomycin Allergy Rash Verified 04/08/17 12:19 [From Neosporin ([id number]-xta-[id number])] polymyxin B Allergy Rash Verified 04/08/17 12:19 [From Neosporin ([id number]-wqy-pkuvh)] simvastatin [From Zocor] Allergy See Verified 04/08/17 12:19 Comments Procedures/tests Complete & Pending: Procedures Performed prior 72 hours Category Date Time Status CL Cardioversion [CL] Routine Bearing Maker 04/10/17 09:28 Completed ECG 12 lead ECG [ECG] AM 0600 Y 04/09/17 06:00 Completed ECG 12 lead ECG [ECG] AM 0600 Y 04/10/17 06:00 Completed ECG 12 lead ECG [ECG] AM 0600 Y 04/11/17 06:00 Ordered ECG 12 lead ECG [ECG] Routine Y 04/08/17 10:52 Completed ECG 12 lead ECG [ECG] Stat Y 04/08/17 13:59 Completed ECG 12 lead ECG [ECG] Stat Y 04/10/17 12:34 Ordered Date of admission: 04/08/17 09:47 [facility] care physician: [facility] Consults: 04/08/17 11:33 Consult to Respiratory Therapy [CONS] Routine Reason for Consult: respiratory needs. Time Notified: 11:15 Call Completed: Yes Discharging clinician: Eduarda Mcnamara Anticipated date of discharge: 04/10/17 - Patient Status Disposition: Home, Self-Care Condition: Good Functional capacity at discharge: independent ambulation Overall status at discharge: patient is progressing back to baseline - Discharge Instructions Follow Up With: [facility]Primary Care Provider] - 04/15/17 2:30 pm (Please follow up as schedule...) - Diet and Activity Activity: increase activity as tolerated Diet: advance to your usual diet - Hospital Course Hospital course: Mr. Stapleton is a 62 year old male who has a known history OF PAF. Patient was admitted for rhythmol initiation. Patient's ECG 04/08/17 shows afib 90's, QRS = 89ms. ECG 04/09/17 with a.fib HR 91, QRS 96ms. ECG 04/10/17 with atrial fibrillation, HR 92. QRS 92ms. Patient is on xarelto and has not missed any doses in the past 30 days. Patient underwent successful cardioversion today. ECG now with SR, HR 63. QRS 101ms. Patient is awake, alert, and oriented. Patient will have someone drive him home. Patient is being prepped for discharge today in stable condition. Patient will follow up with [facility]. Patient educated to call cardiology for any questions or concerns. Paper RX given to patient as well as [facility] - Time Spent with Patient Total time spent providing and/or coordinating discharge services: Less than 30 minutes Physical Examination Vital Signs, Last 4 Hours Temp Pulse Resp BP Pulse Ox 04/10/17 11:33 97.6 F 69 17 120/83 99 General: Conversant, No Apparent Distress HEENT: Atraumatic, Normocephaly, Mucus Membranes Moist, Other (Stoma noted. ) Neck: No JVD, Normal carotid pulses Cardiac: Reg Rate and Rhythm, Normal S1 and S2, No Murmur Lungs: Normal Breath Sounds, No Wheeze, Rales, Rhonchi Neuro: Alert and responsive, No focal deficits noted Abdomen: Soft, Non-Tender Skin: No rashes noted on visualized skin Musculoskeletal: No Chest Wall Tenderness Extremities: No Clubbing, No Cyanosis, No Edema, Normal Pulses - VTE Reasons for not Prescribing Prophylaxis: Not indicated-Anticoagulated or INR therapeutic
--- NOTE | 2017-04-10 18:28 | Electrocardiograph Report ---
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
--- NOTE | 2017-04-10 18:59 | Electrocardiograph Report ---
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
--- NOTE | 2017-04-10 19:05 | Electrocardiograph Report ---
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
== END 2017-04-10 14:56 | disposition home or self-care (01) | DRG 310 ==
LOC: 2ANU 09:47
PROVIDERS: ADMIT Internal Medicine Clinical Cardiac Electrophysiology; ATTEND Internal Medicine Clinical Cardiac Electrophysiology